=== PATIENT | female | born 1975 | race Caucasian/White ===

== ENCOUNTER 2018-06-13 07:52 | Emergency (ER) | payer BC ==
[~2018-06-13] VITALS: Ht 162.6 cm; Wt 90.7 kg
[~2018-06-13 07:52] MED LIST: ACETAMINOPHEN-1 EAC1 PO; BACTRIM DS TAB1 EACH PO; ERYTHROMYCIN E3.5 G3 OPHTHALMIC; FLEXERIL PO; LISINOPRIL10 MG PO; LISINOPRIL20 MG PO; LOTEPREDNOL OP; METFORMIN HCL500 MG PO; MOBIC7.5 M1 PO; NOHOMEMEDICATIONS; NORCO 5-325 TA1 EACH PO; PEPTO-BISMOL262 M1 PO; PERCOCET 5-3251 EACH PO; PREDNISONE50 MG PO; ROBAXIN 750 MG750 MG PO; ROBAXIN500 MG PO; SYNTHROID150 MCG PO; TOBRAMYCIN OP; TUMS PO; WELLBUTRIN XL150 MG PO; ZOFRAN4 MG PO
[2018-06-13] MEDS ORDERED: TRAMADOL 50 MG50 MG PO (08:38)
[2018-06-13] MEDS ORDERED: MEDROL DOSPAK21 TA1 PO (08:38)
[2018-06-13 09:16] VITALS: BP 177/103
== END 2018-06-13 09:17 | disposition home or self-care (01) ==
LOC: M.ERS 07:52
DX: S83.242A Other tear of medial meniscus, current injury, left knee, initial encounter (principal); F17.200 Nicotine dependence, unspecified, uncomplicated; I10 Essential (primary) hypertension; Z88.0 Allergy status to penicillin; Z98.890 Other specified postprocedural states; Z90.89 Acquired absence of other organs; W00.2XXA Other fall from one level to another due to ice and snow, initial encounter; Y93.89 Activity, other specified; Y92.89 Other specified places as the place of occurrence of the external cause; Y99.8 Other external cause status

== ENCOUNTER 2019-02-14 23:00 | Emergency (ER) | payer BC ==
[~2019-02-14] VITALS: Ht 160 cm; Wt 90.7 kg
[~2019-02-14 23:00] MED LIST changes: +MEDROL DOSPAK21 TA1 PO; +TRAMADOL 50 MG50 MG PO
[2019-02-14 23:36] LABS: ABSOLUTE BASOPHILS 0.1 thou/uL (0.0-0.2); ABSOLUTE EOSINOPHILS 0.3 thou/uL (0.0-0.7); ABSOLUTE MONOCYTES 0.7 thou/uL (0.0-1.2); ABSOLUTE NEUTROPHILS 7.6 thou/uL (1.6-8.1); BASOPHILS 0.8 %; EOSINOPHILS 2.5 %; HEMATOCRIT 39.2 % (37.0-47.0); HEMOGLOBIN 13.2 gm/dL (12.0-15.0); LYMPHOCYTES 18.9 %; MCH 29.8 pg (26.0-34.0); MCHC 33.6 g/dL (28.0-37.0); MCV 88.7 fL (80.0-100.0); MONOCYTES 6.7 %; MPV 9.7 fl. (7.2-11.1); NUCLEATED RBCS 0 /100WBC; PLATELET COUNT* 243 thou/uL (150-400); POLYS 71.1 %; RBC 4.42 mil/uL (4.20-5.00); RDW-CV 15.1 % (10.5-14.5); WBC 10.7 thou/uL (4.0-11.0)
[2019-02-14 23:40] LABS: ANION GAP 9 mmol/L (7-16); BUN 8 mg/dL (7-18); CALCIUM 7.4 mg/dL (8.5-10.1); CHLORIDE 103 mmol/L (98-107); CO2 27 mmol/L (21-32); GLUCOSE 113 mg/dL (70-99); POTASSIUM 3.3 mmol/L (3.5-5.1); SODIUM 139 mmol/L (136-145)
[2019-02-14 23:44] LABS: INR 0.9; PROTIME 9.6 Seconds (9.20-11.50)
[2019-02-14 23:51] LABS: ALBUMIN 3.8 g/dL (3.4-5.0); ALKALINE PHOSPHATASE 73 U/L (46-116); NT-PRO BRAIN NAT PEPTIDE 103 pg/mL (<300); SGOT 25 U/L (15-37); SGPT 34 U/L (30-65); TOTAL BILIRUBIN 0.7 mg/dL (<0.1-1.0); TOTAL PROTEIN 7.4 g/dL (6.4-8.2); TROPONIN-I LEVEL <0.06 ng/mL (<0.06)
[2019-02-15] MEDS ORDERED: LOPRESSOR50 PO (01:08)
[2019-02-15 01:33] VITALS: BP 122/77
--- NOTE | 2019-02-15 09:52 | EKG ---
[place] [address] ELECTROCARDIOGRAM REPORT Name: ROSE VALERIO [id number] Admission: 02/14/19 Attend Phys: Discharge: 02/15/19 Date of : 77 Report #: [id number] THIS REPORT FOR: //name// [facility] ED Test Date: 2019-02-14 Test Time: 23:22:14 Pat Name: ROSE TEODORO Department: Room: Gender: F [employer]: KARINA : 1975 Requested By: Smita Cedillo Order Number: [id number] MD: Eren Clarke Measurements Intervals [place] Rate: 78 P: -15 WA: 137 QRS: 26 QRSD: 114 T: 37 QT: 392 QTc: 447 Interpretive Statements Sinus rhythm Incomplete right bundle branch block Anterior infarct, old Compared to ECG 03/15/2016 23:05:57 no change Electronically Signed On 02-15-2019 9:52:30 CDT by Eren Clarke [email or web address] <ELECTRONICALLY SIGNED> By: Eren Clarke MD, [facility] 02/15/19 0952 21 21 Eren Clarke MD, FACC /EPI
== END 2019-02-15 01:34 | disposition home or self-care (01) ==
LOC: M.ERS 23:00
PROVIDERS: Emergency Medicine
DX: I10 Essential (primary) hypertension (principal); E89.0 Postprocedural hypothyroidism; Z88.0 Allergy status to penicillin; Z98.890 Other specified postprocedural states

== ENCOUNTER 2019-02-17 19:35 | Emergency (ER) | payer BC ==
[~2019-02-17] VITALS: Ht 160 cm; Wt 90.7 kg
[~2019-02-17 19:35] MED LIST changes: +LOPRESSOR50 PO
[2019-02-17 20:08] LABS: ABSOLUTE BASOPHILS 0.1 thou/uL (0.0-0.2); ABSOLUTE EOSINOPHILS 0.3 thou/uL (0.0-0.7); ABSOLUTE LYMPHOCYTES 2.5 thou/uL (0.8-5.3); ABSOLUTE MONOCYTES 0.5 thou/uL (0.0-1.2); ABSOLUTE NEUTROPHILS 5.4 thou/uL (1.6-8.1); BASOPHILS 1.4 %; EOSINOPHILS 3.4 %; HEMATOCRIT 34.4 % (37.0-47.0); HEMOGLOBIN 11.5 gm/dL (12.0-15.0); LYMPHOCYTES 28.7 %; MCHC 33.5 g/dL (28.0-37.0); MCV 89.6 fL (80.0-100.0); MONOCYTES 5.3 %; MPV 9.9 fl. (7.2-11.1); NUCLEATED RBCS 0 /100WBC; PLATELET COUNT* 227 thou/uL (150-400); POLYS 61.2 %; RBC 3.84 mil/uL (4.20-5.00); RDW-CV 15.4 % (10.5-14.5); WBC 8.8 thou/uL (4.0-11.0)
[2019-02-17 20:24] LABS: ANION GAP 11 mmol/L (7-16); BUN 12 mg/dL (7-18); CALCIUM 8.2 mg/dL (8.5-10.1); CHLORIDE 106 mmol/L (98-107); CO2 26 mmol/L (21-32); CREATININE 1.1 mg/dL (0.6-1.3); GLUCOSE 177 mg/dL (70-99); POTASSIUM 3.6 mmol/L (3.5-5.1); SODIUM 143 mmol/L (136-145)
[2019-02-17 20:27] LABS: TROPONIN-I LEVEL <0.06 ng/mL (<0.06)
[2019-02-17] MEDS ORDERED: CATAPRES0.1 MG PO (21:55)
[2019-02-17 22:03] VITALS: BP 171/81
--- NOTE | 2019-02-18 12:24 | EKG ---
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: MELL : 1975 Requested By: Smita Cedillo Order Number: [id number] MD: Eren Clarke Measurements Intervals [place] Rate: 70 P: 31 MA: 175 QRS: 28 QRSD: 96 T: 46 QT: 422 QTc: 456 Interpretive Statements Sinus rhythm septal infarct, old Baseline wander in lead(s) V4 Compared to ECG 02/14/2019 23:22:14 Myocardial infarct finding still present Electronically Signed On 02-18-2019 12:24:13 CDT by Eren Clarke [email or web address] <ELECTRONICALLY SIGNED> By: Eren Clarke MD, [facility] 02/18/19 1224 1950 1950 Eren Clarke MD, FAC /EPI
== END 2019-02-17 22:04 | disposition home or self-care (01) ==
LOC: M.ERS 19:35
PROVIDERS: Emergency Medicine
DX: I10 Essential (primary) hypertension (principal); Z88.0 Allergy status to penicillin; Z98.890 Other specified postprocedural states; Z90.89 Acquired absence of other organs

== ENCOUNTER 2019-02-22 22:23 | Emergency (ER) | payer BC ==
[~2019-02-22] VITALS: Ht 160 cm; Wt 95.7 kg
[~2019-02-22 22:23] MED LIST changes: +CATAPRES0.1 MG PO
[2019-02-22 22:43] LABS: HEMATOCRIT 38.1 % (37.0-47.0); HEMOGLOBIN 12.8 gm/dL (12.0-15.0); MCHC 33.6 g/dL (28.0-37.0); MCV 89.4 fL (80.0-100.0); MPV 10.3 fl. (7.2-11.1); NUCLEATED RBCS 0 /100WBC; PLATELET COUNT* 254 thou/uL (150-400); RBC 4.27 mil/uL (4.20-5.00); RDW-CV 15.1 % (10.5-14.5); WBC 11.6 thou/uL (4.0-11.0)
[2019-02-22 22:57] LABS: APTT 28.2 Seconds (25.0-31.3); INR 0.9; PROTIME 9.3 Seconds (9.20-11.50)
[2019-02-22 23:00] LABS: ANION GAP 15 mmol/L (7-16); BUN 10 mg/dL (7-18); CALCIUM 8.5 mg/dL (8.5-10.1); CHLORIDE 103 mmol/L (98-107); CO2 22 mmol/L (21-32); CREATININE 1.2 mg/dL (0.6-1.3); GLUCOSE 158 mg/dL (70-99); POTASSIUM 4.2 mmol/L (3.5-5.1); SODIUM 140 mmol/L (136-145)
[2019-02-22 23:12] LABS: ABSOLUTE LYMPHOCYTES 2.9 thou/uL (0.8-5.3); ABSOLUTE MONOCYTES 0.8 thou/uL (0.0-1.2); ABSOLUTE NEUTROPHILS 7.9 thou/uL (1.6-8.1)
[2019-02-22 23:13] LABS: PLATELET ESTIMATE ADEQUATE
[2019-02-22 23:24] LABS: ALBUMIN 3.8 g/dL (3.4-5.0); ALKALINE PHOSPHATASE 72 U/L (46-116); CK-MB MASS 1.1 ng/mL (<0.5-3.6); LIPASE 161 U/L (73-393); MAGNESIUM 2.3 mg/dL (1.8-2.4); NT-PRO BRAIN NAT PEPTIDE 213 pg/mL (<300); SGPT 41 U/L (30-65); TOTAL BILIRUBIN 0.4 mg/dL (<0.1-1.0); TOTAL PROTEIN 7.6 g/dL (6.4-8.2); TROPONIN-I LEVEL <0.06 ng/mL (<0.06)
[2019-02-22 23:42] VITALS: BP 180/88
[2019-02-23 00:10] LABS: SGOT 26 U/L (15-37)
--- NOTE | 2019-02-23 10:06 | EKG ---
[place] [address] ELECTROCARDIOGRAM REPORT Name: ROSE VALERIO Room: [facility]#: [id number] Admission: 02/22/19 Attend Phys: Discharge: 02/22/19 Date of : 77 Report #: [id number] THIS REPORT FOR: //name// [facility] ED Test Date: 2019-02-22 Test Time: 22:45:44 Pat Name: ROSE VALERIO Department: Room: Gender: F Retail Salesman: ALBERT : 1975 Requested By: Mukesh Steele Order Number: [id number] MD: Eren Clarke Measurements Intervals [place] Rate: 59 P: 20 RI: 168 QRS: 17 QRSD: 88 T: 22 QT: 405 QTc: 402 Interpretive Statements Sinus rhythm Probable septal infarct, old Baseline wander in lead(s) V1 Compared to ECG 02/17/2019 19:50:48 No significant changes Electronically Signed On 02-23-2019 10:06:29 CDT by Eren Clarke [email or web address] <ELECTRONICALLY SIGNED> By: Eren Clarke MD, [facility] 02/23/19 1006 2245 2245 Eren Clarke MD, FAC /EPI
== END 2019-02-22 23:44 | disposition home or self-care (01) ==
LOC: M.ERS 22:23
PROVIDERS: Family Medicine
DX: M54.2 Cervicalgia (principal); I10 Essential (primary) hypertension; Z88.0 Allergy status to penicillin; Z98.890 Other specified postprocedural states; Z90.89 Acquired absence of other organs

== ENCOUNTER 2019-10-18 11:07 | Emergency (ER) | payer OTHER ==
[~2019-10-18] VITALS: Ht 157.5 cm; Wt 88.9 kg
[2019-10-18] MEDS ORDERED: TOPROL XL100 MG PO (11:23)
[2019-10-18] MEDS ORDERED: LEVOXYL175 MCG PO (11:24)
[2019-10-18] MEDS ORDERED: CELEXA 20 MG TA20 MG PO (11:24)
[2019-10-18] MEDS ORDERED: NORVASC 2.5 MG2.5 M1 PO (11:24)
[2019-10-18] MEDS ORDERED: FLEXERIL PO (12:37)
[2019-10-18] MEDS ORDERED: NAPROSYN500 MG PO (12:37)
[2019-10-18 12:56] VITALS: BP 130/66
== END 2019-10-18 12:50 | disposition home or self-care (01) ==
LOC: M.ERS 11:07
DX: M54.5 Low back pain (principal); G89.29 Other chronic pain; I10 Essential (primary) hypertension; E89.0 Postprocedural hypothyroidism; Z88.0 Allergy status to penicillin; Z98.890 Other specified postprocedural states

== ENCOUNTER 2020-03-21 21:19 | Emergency (ER) | payer OTHER ==
[~2020-03-21] VITALS: Ht 160 cm; Wt 86.2 kg
[~2020-03-21 21:19] MED LIST changes: +CELEXA 20 MG TA20 MG PO; +LEVOXYL175 MCG PO; +NAPROSYN500 MG PO; +NORVASC 2.5 MG2.5 M1 PO; +TOPROL XL100 MG PO
[2020-03-21] MEDS ORDERED: PREDNISONE 20 M20 M1 PO (22:28)
[2020-03-21] MEDS ORDERED: NORCO 5-325 TA1 EAC2 PO (22:28)
[2020-03-21 22:32] VITALS: BP 196/98
== END 2020-03-21 22:33 | disposition home or self-care (01) ==
LOC: M.ERS 21:19
DX: S83.92XA Sprain of unspecified site of left knee, initial encounter (principal); M25.572 Pain in left ankle and joints of left foot; I10 Essential (primary) hypertension; Z98.890 Other specified postprocedural states; Z79.899 Other long term (current) drug therapy; Z88.0 Allergy status to penicillin; W18.39XA Other fall on same level, initial encounter; Y93.89 Activity, other specified; Y92.89 Other specified places as the place of occurrence of the external cause; Y99.8 Other external cause status

== ENCOUNTER 2020-06-15 20:02 | Emergency (ER) | payer OTHER ==
[~2020-06-15] VITALS: Ht 160 cm; Wt 88.5 kg
[~2020-06-15 20:02] MED LIST changes: +NORCO 5-325 TA1 EAC2 PO; +PREDNISONE 20 M20 M1 PO
[2020-06-15] MEDS ORDERED: TIROSINT175 MCG PO (20:19)
[2020-06-15] MEDS ORDERED: FLONASE 0.05%50 MCG NARES (20:19)
[2020-06-15] MEDS ORDERED: NORVASC 2.5 MG2.5 M1 (20:20)
[2020-06-15] MEDS ORDERED: FLUOXETINE HCL40 MG PO (20:20)
[2020-06-15] MEDS ORDERED: TRULICITY0.75 MG/0. SUBQ (20:21)
[2020-06-15] MEDS ORDERED: PROTONIX 20 MG20 MG PO (20:21)
[2020-06-15] MEDS ORDERED: KEFLEX500 M1 PO (20:22)
[2020-06-15 20:34] LABS: URINE BILIRUBIN NEGATIVE (Negative); URINE BLOOD NEGATIVE (Negative); URINE CLARITY CLEAR; URINE COLOR YELLOW; URINE GLUCOSE-RANDOM NEGATIVE (Negative); URINE KETONES NEGATIVE (Negative); URINE LEUKOCYTES-REFLEX NEGATIVE (Negative); URINE NITRITE-REFLEX NEGATIVE (Negative); URINE PROTEIN NEGATIVE (Negative); URINE SPECIFIC GRAVITY 1.015 (1.005-1.030); URINE UROBILINOGEN 0.2 E.U./dl (0.2-1.0)
[2020-06-15 20:44] LABS: ABSOLUTE EOSINOPHILS 0.2 thou/uL (0.0-0.7); ABSOLUTE LYMPHOCYTES 2.5 thou/uL (0.8-5.3); ABSOLUTE MONOCYTES 0.7 thou/uL (0.0-1.2); ABSOLUTE NEUTROPHILS 8.2 thou/uL (1.6-8.1); BASOPHILS 0.2 %; EOSINOPHILS 2.1 %; HEMATOCRIT 36.9 % (37.0-47.0); LYMPHOCYTES 21.7 %; MCH 28.3 pg (26.0-34.0); MCHC 32.5 g/dL (28.0-37.0); MCV 87.1 fL (80.0-100.0); MPV 9.7 fl. (7.2-11.1); NUCLEATED RBCS 0 /100WBC; PLATELET COUNT* 226 thou/uL (150-400); RBC 4.23 mil/uL (4.20-5.00); RDW-CV 15.3 % (10.5-14.5); WBC 11.7 thou/uL (4.0-11.0)
[2020-06-15 20:47] LABS: AMP/METHAMP Negative (Negative); BARBITURATES Negative (Negative); BENZODIAZEPINES Negative (Negative); COCAINE Negative (Negative); METHADONE Negative (Negative); OPIATES Negative (Negative); PCP Negative (Negative); THC Negative (Negative)
[2020-06-15 20:49] LABS: CALCIUM 8.6 mg/dL (8.5-10.1); POTASSIUM 3.4 mmol/L (3.5-5.1)
[2020-06-15] MEDS ORDERED: OXYBUTYNIN 5 MG5 M2 PO (22:42)
[2020-06-15 22:56] VITALS: BP 145/65
== END 2020-06-15 22:57 | disposition home or self-care (01) ==
LOC: M.ERS 20:02
PROVIDERS: Emergency Medicine; Nurse Practitioner Family
DX: N32.81 Overactive bladder (principal); I10 Essential (primary) hypertension; E11.9 Type 2 diabetes mellitus without complications; Z79.899 Other long term (current) drug therapy

== ENCOUNTER 2021-03-18 08:58 | Emergency (ER) | payer OTHER ==
[~2021-03-18] VITALS: Ht 160 cm; Wt 89.4 kg
[~2021-03-18 08:58] MED LIST changes: +FLONASE 0.05%50 MCG NARES; +FLUOXETINE HCL40 MG PO; +KEFLEX500 M1 PO; +NORVASC 2.5 MG2.5 M1; +OXYBUTYNIN 5 MG5 M2 PO; +PROTONIX 20 MG20 MG PO; +TIROSINT175 MCG PO; +TRULICITY0.75 MG/0. SUBQ
[2021-03-18] MEDS ORDERED: AUGMENTIN 875-1 EACH PO (09:21)
[2021-03-18] MEDS ORDERED: ZOLOFT 50 MG TA50 MG PO (09:21)
[2021-03-18] MEDS ORDERED: TRAZODONE HCL100 MG PO (09:21)
[2021-03-18] MEDS ORDERED: PROCTOSOL-HC28.35 GM (09:22)
[2021-03-18] MEDS ORDERED: SINGULAIR 10 MG10 MG PO (09:22)
[2021-03-18] MEDS ORDERED: GLIMEPIRIDE1 MG PO (09:23)
[2021-03-18] MEDS ORDERED: LOSARTAN POTAS100 MG PO (09:24)
[2021-03-18] MEDS ORDERED: IBUPROFEN 800800 M1 PO (10:58)
[2021-03-18] MEDS ORDERED: PREDNISONE 10 M10 MG PO (10:58)
[2021-03-18] MEDS ORDERED: LIDOCAINE VISC100 ML SW&SWALLOW (10:58)
[2021-03-18 11:09] VITALS: BP 154/72
== END 2021-03-18 11:10 | disposition home or self-care (01) ==
LOC: M.ERS 08:58
DX: B27.90 Infectious mononucleosis, unspecified without complication (principal); I10 Essential (primary) hypertension; E11.9 Type 2 diabetes mellitus without complications; Z90.89 Acquired absence of other organs; Z98.890 Other specified postprocedural states; Z79.899 Other long term (current) drug therapy